=== PATIENT | male | born 1945 | race Caucasian/White ===

== ENCOUNTER 2022-02-23 19:32 | Emergency (ER) | payer OTHER ==
[~2022-02-23] VITALS: Ht 177.8 cm; Wt 78.0 kg
[2022-02-23 19:32] VITALS: BP_SYST 122
--- NOTE | 2022-02-23 19:35 | NUR ---
CODE STROKE CALLED ER BED 5
--- NOTE | 2022-02-23 19:45 | NUR ---
Pt to bed 5 at this time via EMS from home w/ c/o slurred speech and right sided facial droop and RUE weakness. LKW 1800 today. Symptoms are resolved at this time. Pt placed on cardiac rehabilitation program director. pulse oximetry on. Bed in low position. Side rails up.
--- NOTE | 2022-02-23 19:47 | NUR ---
Pt to radiology
--- NOTE | 2022-02-23 19:50 | NUR ---
Pt back from radiology.
--- NOTE | 2022-02-23 20:01 | NUR ---
# 20 gauge angiocath placed to left hand by EMS in the field. Use of asceptic technique. Opsite placed over site. Blood return noted. Blood for lab drawn from site. Flushed with 10 cc of normal saline. No evidence of infiltration noted. Patient tolerated well.
--- NOTE | 2022-02-23 20:07 | NUR ---
Pt remains in bed at this time awaiting Tele Neuro
--- NOTE | 2022-02-23 20:08 | NUR ---
PT passed swallow eval at this time
[2022-02-23] MEDS ORDERED: iohexoL 350 mgI/mL, 100 ML INFUS..BTL IV ONE (20:14)
--- NOTE | 2022-02-23 20:20 | NUR ---
Pt at radiology at this time for CTA head and neck Addendum: 02/23/22 at 2020 by SDTRAVDM pt went via wheelchair. Pt able to ambulate to w/c independently with strong, steady gait.
[2022-02-23 20:23] LABS: EOSINOPHILS # (AUTO) 0.1 K/uL (0.0-0.4); MEAN CORPUSCULAR HEMOGLOBIN 31 pg (27-31)
[2022-02-23 20:32] LABS: BASOPHILS # (AUTO) 0.1 K/uL (0.0-0.2); BASOPHILS % (AUTO) 0.9 % (0.0-2.0); EOSINOPHILS % (AUTO) 1.5 % (0.0-4.0); HEMATOCRIT 40.9 % (36-54); HEMOGLOBIN 14.2 g/dL (14.0-18.0); LYMPHOCYTES # (AUTO) 1.7 K/uL (1.0-5.5); LYMPHOCYTES % (AUTO) 18.7 % (20.5-51.5); MEAN CORPUSCULAR HGB CONC 35 % (32-36); MEAN CORPUSCULAR VOLUME 88 fL (79.0-98.0); MONOCYTES # (AUTO) 1.4 K/uL (0.0-1.0); MONOCYTES % (AUTO) 15.7 % (1.7-9.3); NEUTROPHILS # (AUTO) 5.7 K/uL (1.8-7.7); NEUTROPHILS % (AUTO) 63.2 % (40.0-70.0); PLATELET COUNT (AUTO) 210 K/uL (130-430); RED BLOOD CELL COUNT(AUTO) 4.63 MIL/uL (4.2-6.2); RED CELL DISTRIBUTION WIDTH 13.5 % (9.0-15.0); WHITE BLOOD COUNT (AUTO) 9.1 K/uL (4.8-10.8)
--- NOTE | 2022-02-23 20:38 | NUR ---
Pt speaking with neurology via KIRSTY.
[2022-02-23 20:39] LABS: ANION GAP 10 (5-15); CALCIUM 8.4 mg/dL (8.4-11.0); CHLORIDE 106 mmol/L (98-107); CREATININE 1.49 mg/dL (0.55-1.30); GLUCOSE 111 mg/dL (70-99); POTASSIUM 3.9 mmol/L (3.5-5.1); SODIUM SERUM 140 mmol/L (136-145); UREA NITROGEN, BLOOD 25 mg/dL (8-21)
--- NOTE | 2022-02-23 20:40 | NUR ---
Tele Neuro Samantha Whitt MD on video monitor at this time speaking to patient and patient's regarding patient's condition and plan of care.
[2022-02-23 20:47] LABS: ALANINE AMINOTRANSFERASE 18 U/L (12-78); ALBUMIN 3.3 g/dL (3.4-4.8); ASPARTATE AMINOTRANSFERASE 29 U/L (10-37); TOTAL BILIRUBIN 0.6 mg/dL (0.0-1.0)
--- NOTE | 2022-02-23 21:01 | NUR ---
MOVED TO BED 3
--- NOTE | 2022-02-23 21:21 | NUR ---
COVID SAMPLE collected and sent to lab.
[2022-02-23] MEDS ORDERED: ASPIRIN 325 MG TABLET PO ONE (23:15)
--- NOTE | 2022-02-24 01:31 | NUR ---
Pt resting in bed with eyes closed. Even rise and fall of chest. VSS. at bedside and updated with plan of care. Safety precautions in place and connected to ekg monitor.
--- NOTE | 2022-02-24 03:22 | NUR ---
WISHES TO BE CALLED BEFORE TRANSFER. DARRIAN .
--- NOTE | 2022-02-24 03:22 | NUR ---
Pt woken to verbal stimuli. Talked to pt about update on transfer. Pt acting appropriately, responding, and following commands. Safety precautions in place and connected to court monitor.
--- NOTE | 2022-02-24 06:37 | NUR ---
REPORT CALLED TO [facility] FOR TRANSPORT. REPORT GIVEN TO KENNY FONSECA.
--- NOTE | 2022-02-24 06:45 | NUR ---
Pt ambulated to the bathroom with ease. Now back in bed. Pt connected to monitor.
--- NOTE | 2022-02-24 07:13 | NUR ---
Report given to Maryann FONSECA to assume care.
--- NOTE | 2022-02-24 07:22 | NUR ---
OPENING NOTE: REPORT RC'VD FROM OUT GOING NOC RN, ALL CARES ASSUMED.
--- NOTE | 2022-02-24 08:20 | NUR ---
ETA for patient transfer to [facility] is approx 0900; bus driver/monitor confirmed after spoking with Iris from [facility].
--- NOTE | 2022-02-24 08:57 | NUR ---
Patient to be transferred to [facility]. Is being transferred due to higher level of care. Receiving facility has accepting physician and available space. ER physician has signed transfer form. Patient or responsible green party has agreed to transfer and signed form. Patient belongings inventoried and will be sent with patient. Copy of nursing notes, lab reports, EKG, Physicians Orders and X-rays to be sent with patient. Report called to at receiving facility. Receiving physician is MD PAM to report given. Saba FONSECA given report by [facility] nurse at [phone].
[2022-02-24 09:00] VITALS: BP_SYST 116
== END 2022-02-24 09:00 | disposition short-term general hospital (02) ==
LOC: SED 19:32
DX: G45.9 Transient cerebral ischemic attack, unspecified (principal); I65.21 Occlusion and stenosis of right carotid artery; R29.810 Facial weakness; Z79.899 Other long term (current) drug therapy; Z20.822 Contact with and (suspected) exposure to COVID-19
CPT/HCPCS: 99285; 70450; 71045; 87426; 80053; 85025; 84484; 36415; 93005; 70496; 70498; 83605; 76376; Q9967